=== PATIENT | female | born 1975 | race African-American/Black ===

== ENCOUNTER 2017-06-14 14:51 | Emergency (ER) | payer SELFPAY ==
--- NOTE | 2017-06-14 15:49 | RAD ---
RIGHT ANKLE RADIOGRAPHS 3 VIEWS: DATE: 06/14/17. PROVIDED CLINICAL HISTORY: Right ankle pain. FINDINGS: There is no evidence for a fracture or other acute osseous abnormality. An accessory center of ossif ication was noted adjacent to the medial malleolus. Alignment appears anatomic. Joint spaces appear preserved. IMPRESSION: No evidence for an acute osseous abnormality. If there is persistent clinical concern, conservative management and followup imaging are advised. POS: [facility]
[2017-06-14] MEDS ORDERED: Ibuprofen 200 MG TAB ONE (16:05)
== END 2017-06-14 16:00 | disposition home or self-care (01) ==
LOC: ERS 14:51
DX: S93.401A Sprain of unspecified ligament of right ankle, initial encounter (principal); Z71.6 Tobacco abuse counseling; F17.210 Nicotine dependence, cigarettes, uncomplicated; X58.XXXA Exposure to other specified factors, initial encounter
CPT/HCPCS: 99406

== ENCOUNTER 2018-01-14 09:25 | Emergency (ER) | payer SELFPAY ==
[2018-01-14] MEDS ORDERED: diphenhydrAMINE 25 MG CAP ONE ×2 (12:12→12:13)
[2018-01-14] MEDS ORDERED: predniSONE 20 MG TAB ONE (12:12)
[2018-01-14] MEDS ORDERED: Famotidine 20 MG TAB ONE (12:12)
== END 2018-01-14 12:46 | disposition home or self-care (01) ==
LOC: ERS 09:25
DX: L50.0 Allergic urticaria (principal)
CPT/HCPCS: 99282; J7506

== ENCOUNTER 2020-02-23 10:51 | Emergency (ER) | payer SELFPAY ==
[2020-02-23] MEDS ORDERED: Lidocaine 2% MPF 10 ML AMP (For Epidural Use) ONE (13:23)
[2020-02-23] MEDS ORDERED: Lidocaine 1% PF 5 ML VIAL ONE (13:24)
== END 2020-02-23 15:50 | disposition home or self-care (01) ==
LOC: ERS 10:51
DX: N76.4 Abscess of vulva (principal)
CPT/HCPCS: 56405; J2001

== ENCOUNTER 2022-08-28 14:20 | Outpatient (CLI) | payer SELFPAY | END 2022-08-28 14:21 | disposition home or self-care (01) | LOC: RAD 14:20 | PROVIDERS: ATTEND Nurse Practitioner Family | DX: S89.92XA Unspecified injury of left lower leg, initial encounter (principal) ==

== ENCOUNTER 2023-05-08 15:47 | Emergency (ER) | payer OTHER, SELFPAY ==
[2023-05-08] MEDS ORDERED: Ibuprofen 800 MG TAB ONE (19:37)
== END 2023-05-08 20:33 | disposition home or self-care (01) ==
LOC: ERS 15:47
DX: M25.562 Pain in left knee (principal)